=== PATIENT | female | born 2000 | race Caucasian/White ===

== ENCOUNTER 2023-12-29 10:52 | Outpatient (CLI) | payer OTHER, BC, SELFPAY ==
--- NOTE | ~2023-12-29 | US_ITS ---
. EXAMINATION: US OB transvaginal DATE: 12/29/2023 11:43 INDICATION: . Uncertain dates. TECHNIQUE: Real-time transvaginal pelvic ultrasound was performed. COMPARISON: None. FINDINGS: The uterus measures 9.7 x 5.2 x 5.5 cm. There is an intrauterine gestational sac. A yolk sac is ident ified. The crown rump length measures 7 mm, which correlates with an estimated gestational age of 6 weeks and 4 day(s) (+/-) 4 day(s). heart motion is identified measuring 121 beats per min [place] (bpm) by M-mode Doppler. There is a small subchorionic hematoma. The right ovary measures 3.8 x 2 .2 x 2.6 cm. The left ovary measures 3.4 x 1.6 x 2.9 cm. There is no free fluid in the pelvis. IMPRESSION: 1. Single living intrauterine gestation with estimated date of delivery of 08/19/2024. 2. Small subchorionic hematoma. Reviewed, dictated and finalized at location A. IMPRESSION: 1. Single living intrauterine gestation with estimated date of delivery of . 2. Small subchorionic hematoma.
== END 2023-12-29 10:53 ==
LOC: MICIMG 10:54
PROVIDERS: PCP Advanced Practice Midwife; Visit Provider Advanced Practice Midwife
DX: Z36.87 Encounter for antenatal screening for uncertain dates (principal); O41.8X91 Other specified disorders of amniotic fluid and membranes, unspecified trimester, fetus 1; Z3A.00 Weeks of gestation of pregnancy not specified
CPT/HCPCS: 76817

== ENCOUNTER 2024-01-27 12:24 | Outpatient (CLI) | payer OTHER, BC, SELFPAY ==
--- NOTE | ~2024-01-27 | US_ITS ---
EXAMINATION: US OB <= 14 weeks fetus DATE: 01/27/2024 12:46 INDICATION: Subchorionic hematoma, first trimester. TECHNIQUE: Real-time transabdominal pelvic ultrasound was performed. COMPARISON: Ultrasound 12/29/2023 FINDINGS: The uterus measures 9.4 x 8.1 x 7.7 cm. There is an intrauterine gestational sac. The crown rum p length measures 3.9 cm, which correlates with an estimated gestational age of 10 weeks and 6 day(s) (+/-) 1 week(s) and 0 day(s). heart motion is identified measuring 166 beats per minute (bpm) by M-mode Doppler. The ovaries are not visualized. There is no free fluid in the pelvis. IMPRESSION: 1. Single living intrauterine gestation with estimated date of delivery of 08/19/2024 based on the u ltrasound from 12/29/2023. 2. No subchorionic hematoma. Reviewed, dictated and finalized at location A. IMPRESSION: 1. Single living intrauterine gestation with estimated date of delivery of based on the ultrasound from 12/29/2023. 2. No subchorionic hematoma.
== END 2024-01-27 12:25 ==
LOC: MICIMG 12:26
PROVIDERS: PCP Obstetrics & Gynecology Gynecology; Visit Provider Obstetrics & Gynecology Gynecology
DX: O36.8910 Maternal care for other specified fetal problems, first trimester, not applicable or unspecified (principal); Z3A.00 Weeks of gestation of pregnancy not specified
CPT/HCPCS: 76801

== ENCOUNTER 2024-03-21 11:07 | Outpatient (CLI) | payer OTHER, SELFPAY ==
--- NOTE | ~2024-03-21 | US_ITS ---
COMPLETE AND LIMITED MATERNAL ULTRASOUND (Doppler ultrasound interrogation techniques used as n eeded for this exam.) Ordering provider: Donna Quezada, SR. UNIX SYSTEM ADMINISTRATOR History: . Anatomy scan . Comparison: None. Findings: : Single live fetus with breech presentation. Single intrauterine fetus with heart rate measured at 144 bpm which is within normal limits. --SCREENING OF ANATOMY: Heart (4 chambers): Seen and unremarkable. Outflow tracts are not well demonstrated. Brain survey: Unremarkable. Abdomen: Unremarkable. Cord insertion: Unremarkable. 3 vessel cord: Present and unremarkable. Bladder: Unremarkable. Kidneys: Unremarkable. Spine: Unremarkable. Gender: -- BIOMETRICS: BPD: 420.3 mm = 18 weeks 2 days. HC: 153.7 mm = 18 weeks 2 days. FL: 25.9 mm = 17 weeks and 6 days. AC: 131.2 mm = 18 weeks 4 days. HC/AC: 1.17 FL/BPD: 64.3 FL/AC: 19.75 Mean US age is 18 weeks 2 days for an NAIMA on August 20, 2024. Extrapolated weight is 232.47 g. EFW/GP 36.3%. Three vessel cord is seen. Amniotic fluid volume is subjectively within normal limits. No evidence for significant placental anomalies including placenta previa. The placenta is posterior. Distance from cervix is 3.3 cm. The cervical length is 4.5 cm which is within normal limits. IMPRESSION: UNREMARKABLE COMPLETE AND LIMITED MATERNAL US. Cardiac outflows tracts are not well demonstrate d. Reviewed, dictated and finalized at location A. IMPRESSION: UNREMARKABLE COMPLETE AND LIMITED MATERNAL US. Cardiac outflows tracts ar e not well demonstrated.
== END 2024-03-21 11:08 ==
LOC: MICIMG 11:08
PROVIDERS: PCP Nurse Practitioner Women's Health; Visit Provider Nurse Practitioner Women's Health
DX: Z36.9 Encounter for antenatal screening, unspecified (principal)
CPT/HCPCS: 76805

== ENCOUNTER 2024-05-30 12:10 | Outpatient (RCR) | payer OTHER, SELFPAY ==
[2024-05-30 13:37] LABS: Hematocrit 36.1 % (37.0-47.0); Hemoglobin 12.4 g/dL (12.0-15.0)
[2024-05-30 14:02] LABS: Glucose 1 Hour PP 50gm Dose 185 mg/dL
[2024-05-30 14:16] LABS: Vitamin D 25 Hydroxy 63.2 ng/mL
[2024-05-30 14:38] LABS: HIV 1/2 Ab P24 Ag Result Negative (Negative)
[2024-05-30 18:52] LABS: Rapid Plasma Reagin Non-Reactive (NonReactive)
[2024-05-31] MEDS: RHO(D) IMMUNE GLOBULIN 300 MCG/2 ML SYRINGE IM (10:41)
== END 2024-08-28 23:59 | disposition home or self-care (01) ==
LOC: ANHLAB 12:10
PROVIDERS: Visit Provider Advanced Practice Midwife
DX: Z11.4 Encounter for screening for human immunodeficiency virus [HIV] (principal); Z11.3 Encounter for screening for infections with a predominantly sexual mode of transmission; Z29.13 Encounter for prophylactic Rho(D) immune globulin; O36.0130 Maternal care for anti-D [Rh] antibodies, third trimester, not applicable or unspecified; E55.9 Vitamin D deficiency, unspecified; Z3A.00 Weeks of gestation of pregnancy not specified
CPT/HCPCS: 36415; 82306; 82947; 85014; 85018; 85461; 86592; 86703; 86850; 86900; 86901; 90384; 96372; G0432; J2790

== ENCOUNTER 2024-06-06 08:30 | Outpatient (CLI) | payer OTHER, SELFPAY ==
[2024-06-06 09:03] LABS: Glucose Fasting Gestational 113 mg/dL (>/=95)
[2024-06-06 11:02] LABS: Glucose 1 Hour Gest 201 mg/dL (>/=180)
[2024-06-06 12:08] LABS: Glucose 2 Hour Gest 180 mg/dL (>/= 155)
[2024-06-06 12:46] LABS: Glucose 3 Hour Gest 170 mg/dL (>/=140)
== END 2024-06-06 08:31 | disposition home or self-care (01) ==
LOC: ANHLAB 08:32
PROVIDERS: Visit Provider Obstetrics & Gynecology Gynecology
DX: O99.810 Abnormal glucose complicating pregnancy (principal); Z3A.00 Weeks of gestation of pregnancy not specified
CPT/HCPCS: 36415; 82951; 82952

== ENCOUNTER 2024-06-14 10:46 | Outpatient (CLI) | payer OTHER, SELFPAY ==
--- NOTE | ~2024-06-14 | US_ITS ---
EXAMINATION: US OB follow up DATE: 06/14/2024 11:39 INDICATION: Gestational diabetes mellitus during TECHNIQUE: Real-time ultrasound of the pelvis was performed. The interpreting radiologist was not pre sent for the study. COMPARISON: None. FINDINGS: There is a single living fetus in vertex presentation. The placenta is posterior and not low-lying. heart rate is 136 beats per minute (bpm). The amniotic fluid index is 17.7 cm, which is normal (5th%-95%: 9.0-23.4 cm at 30 weeks estimated gestational age). The following biometric data were obtained: BPD: 8.1 cm -> 32 weeks 5 days Head circumference: 28.9 cm -> 31 weeks 6 days Abdominal circumference: 26.2 cm -> 30 weeks 2 days Femur length: 6.1 cm -> 31 weeks 5 days These measurements are concordant. Head circumference to abdominal circumference ratio: 1.11 (normal range 0.96-1.15). Estimated weight: 1699 g (+/-) 255 g or 3 lbs. 12 oz. (+/-) 9 oz. IMPRESSION: 1. Single living fetus in vertex presentation with heart rate of 136 bpm. 2. Normal amniotic fluid index of 17.7 cm. 3. Estimated weight is 56th percentile by Hadlock criteria when 08/19/2024 is used as the estim ated date of delivery (NAIMA). Please correlate with clinical information or earlier ultrasounds for mo st accurate NAIMA. Reviewed, dictated and finalized at location A. IMPRESSION: 1. Single living fetus in vertex presentation with heart rate of 136 bpm. 2. Normal amniotic fluid index of 17.7 cm. 3. Estimated weight is 56th percentile by Hadlock criteria when 4 is used as the estimated date of delivery (NAIMA). Please correlate with clinic al information or earlier ultrasounds for most accurate NAIMA.
== END 2024-06-14 10:47 | disposition home or self-care (01) ==
PROVIDERS: PCP Advanced Practice Midwife; Visit Provider Advanced Practice Midwife
DX: O24.410 Gestational diabetes mellitus in pregnancy, diet controlled (principal); Z3A.00 Weeks of gestation of pregnancy not specified
CPT/HCPCS: 76816

== ENCOUNTER 2024-07-12 10:28 | Outpatient (CLI) | payer OTHER, BC, SELFPAY ==
[2024-07-12 11:27] LABS: Alanine Aminotransferase 52 U/L (6-35); Albumin Level 3.8 g/dL (3.5-5.1); Alkaline Phosphatase 118 U/L (38-126); Anion Gap 11 mmol/L (4-12); Aspartate Amino Transferase 31 U/L (14-36); Bilirubin,Total 0.4 mg/dL (0.2-1.3); Blood Urea Nitrogen 9 mg/dL (7-17); Carbon Dioxide 18 mmol/L (22-30); Chloride 104 mmol/L (98-107); Estimated Glomerular Filt Rate > 60; Glucose 95 mg/dL (65-110); Potassium 3.7 mmol/L (3.4-5.0); Sodium 133 mmol/L (137-145)
== END 2024-07-12 10:29 | disposition home or self-care (01) ==
LOC: ANHLAB 10:32
PROVIDERS: PCP Advanced Practice Midwife; Visit Provider Advanced Practice Midwife
DX: O99.891 Other specified diseases and conditions complicating pregnancy (principal); L29.9 Pruritus, unspecified; Z3A.00 Weeks of gestation of pregnancy not specified
CPT/HCPCS: 36415; 80053; 82542

== ENCOUNTER 2024-07-20 10:36 | Outpatient (CLI) | payer OTHER, BC, SELFPAY ==
--- NOTE | ~2024-07-20 | US_ITS ---
EXAMINATION: US OB follow up DATE: 07/20/2024 10:57 INDICATION: Gestational diabetes during third trimester . TECHNIQUE: Real-time ultrasound of the pelvis was performed. The interpreting radiologist was not pre sent for the study. COMPARISON: 06/14/2024 FINDINGS: There is a single living fetus in vertex presentation. The placenta is posterior fundal and not low- lying. heart rate is 139 beats per minute (bpm). The amniotic fluid index is 10.0 cm, which is normal (5th%-95%: 7.9-24.9 cm at 35 weeks estimated gestational age). The following biometric data were obtained: BPD: 8.9 cm -> 36 weeks 1 days Head circumference: 32.2 cm -> 36 weeks 2 days Abdominal circumference: 31.9 cm -> 35 weeks 6 days Femur length: 6.8 cm -> 35 weeks 0 days These measurements are concordant. Head circumference to abdominal circumference ratio: 1.01 (normal range 0.93-1.08). Estimated weight: 2750 g (+/-) 413 g or 6 lbs. 1 oz. (+/-) 15 oz. IMPRESSION: 1. Single living fetus in vertex presentation with heart rate of 139 bpm. 2. Normal amniotic fluid index of 10.0 cm. 3. Estimated weight is 50th percentile by Hadlock criteria when 08/19/2024 is used as the estim ated date of delivery (NAIMA). Please correlate with clinical information or earlier ultrasounds for mo st accurate NAIMA. Reviewed, dictated and finalized at location A. IMPRESSION: 1. Single living fetus in vertex presentation with heart rate of 139 bpm. 2. Normal amniotic fluid index of 10.0 cm. 3. Estimated weight is 50th percentile by Hadlock criteria when 4 is used as the estimated date of delivery (NAIMA). Please correlate with clinic al information or earlier ultrasounds for most accurate NAIMA.
== END 2024-07-20 10:37 | disposition home or self-care (01) ==
LOC: MICIMG 10:37
PROVIDERS: PCP Advanced Practice Midwife; Visit Provider Advanced Practice Midwife
DX: O24.414 Gestational diabetes mellitus in pregnancy, insulin controlled (principal); Z3A.00 Weeks of gestation of pregnancy not specified
CPT/HCPCS: 76816

== ENCOUNTER 2024-07-28 10:50 | Outpatient (RCR) | payer OTHER, SELFPAY ==
[2024-07-21 15:08] VITALS: BP 99/64; PULSE 82
--- NOTE | ~2024-07-28 | US_ITS ---
EXAMINATION: US OB BPP wo non-stress DATE: 07/21/2024 15:03 INDICATION: Gestational diabetes and nonreactive nonstress test during third trimester . TECHNIQUE: Real-time pelvic ultrasound was performed. The interpreting radiologist was not present fo r the study. COMPARISON: None. FINDINGS: There is a single living fetus in vertex presentation. The placenta is posterior fundal. heart rate is 126 beats per minute (bpm). Amniotic fluid volume is subjectively normal with normal deepest vertical pocket measuring 5.9 cm. Biophysical profile performed by the technologist: breathing (30 sec sustained breathing in 30 minutes): 2 out of 2 movement (3 gross body movements in 30 minutes): 2 out of 2 tone (one episode of heewxnu-szcnqzpyo-dgwtqqn limb movement): 2 out of 2 Amniotic fluid pocket (2 cm): 2 out of 2 Total score: 8 out of 8 IMPRESSION: 1. Single living fetus in vertex presentation with heart rate of 126 bpm. 2. Biophysical profile 8 out of 8. Reviewed, dictated and finalized at location A.
--- NOTE | ~2024-07-28 | US_ITS ---
EXAMINATION: US OB BPP wo non-stress DATE: 07/28/2024 13:55 INDICATION: arrhythmia TECHNIQUE: Real-time pelvic ultrasound was performed. The interpreting radiologist was not present fo r the study. COMPARISON: None. FINDINGS: There is a single living fetus in vertex presentation. The placenta is fundal/posterior. cardi ac activity and movement are demonstrated. heart rate is 148 beats per minute (bpm). Biophysical profile performed by the technologist: breathing (30 sec sustained breathing in 30 minutes): 2 out of 2 movement (3 gross body movements in 30 minutes): 2 out of 2 tone (one episode of gagqebj-ehukcmgtd-pjnoiiv limb movement): 2 out of 2 Amniotic fluid pocket (2 cm): 2 out of 2 Total score: 8 out of 8 IMPRESSION: 1. Single living intrauterine in vertex presentation with heart rate of 148 bpm. 2. Normal placenta. 3. Biophysical profile 8 out of 8. Reviewed, dictated and finalized at location B. E I INSTRUCTIONAL ASSISTANT
[2024-07-28 14:00] VITALS: BP 114/71; PULSE 80
== END 2024-08-16 17:44 | disposition home or self-care (01) ==
LOC: ANHOBOP 10:50
PROVIDERS: PCP Advanced Practice Midwife; Visit Provider Obstetrics & Gynecology Gynecology
DX: O26.893 Other specified pregnancy related conditions, third trimester (principal); Z3A.35 35 weeks gestation of pregnancy
CPT/HCPCS: 59025; 76819

== ENCOUNTER 2024-08-02 20:28 | Outpatient (CLI) | payer OTHER, SELFPAY ==
[2024-08-02 21:21] VITALS: BP 128/76; PULSE 84
== END 2024-08-02 20:29 | disposition home or self-care (01) ==
LOC: ANHOBOP 21:20
PROVIDERS: Visit Provider Advanced Practice Midwife
DX: O42.90 Premature rupture of membranes, unspecified as to length of time between rupture and onset of labor, unspecified weeks of gestation (principal); Z3A.00 Weeks of gestation of pregnancy not specified
CPT/HCPCS: 59025

== ENCOUNTER 2024-08-13 19:03 | Inpatient (IN) | payer OTHER, SELFPAY ==
[2024-08-13] VITALS (10 sets, daily range): BP systolic 110–137; BP diastolic 61–74; PULSE 68–98; TEMP 36.1–36.5; BMI 38.0
[2024-08-13] MEDS: miSOPROStol 25 MCG TABLET BUCCAL (19:43)
--- NOTE | 2024-08-13 19:44 | LDADM ---
This patient, Reina Bates, was admitted to Labor/Delivery/Recovery 104 on 08/13/24 at 19:03. Plans for labor, pain management and were discussed with patient. Patient/family oriented to hospital policies and general routines including ID bracelet, bed and alarms, visiting hours, pain management, procedures, bathroom and other care routines, personal items, smoking policy, room service/diet and guest tray routines, infant security routines, and visiting hours. Patient/Family are encouraged to report perceived risks to care and to ask questions if they do not understand what they are told or what they should do. See OBIX for further documentation.
[2024-08-13 19:48] LABS: Basophils Percent Auto 0.1 % (0.2-1.2); Eosinophils Absolute Auto 0.1 K/mm3 (0-0.3); Hematocrit 39.6 % (37.0-47.0); Hemoglobin 13.7 g/dL (12.0-15.0); Immature Granulocyte Absolute 0.02 K/mm3 (0.00-0.031); Immature Granulocyte Percent A 0.2 % (0-0.5); Lymphocytes Absolute Auto 1.18 K/mm3 (0.9-3.2); Lymphocytes Percent Auto 14.1 % (18.3-44.2); Mean Corpuscular HGB Conc 34.6 g/dl (32-36); Mean Corpuscular Hemoglobin 31.1 pg (26-34); Mean Platelet Volume 9.3 fl (7.4-10.4); Monocytes Absolute Auto 0.6 K/mm3 (0.1-0.6); Monocytes Percent Auto 7.4 % (2.6-8.5); Neutrophils Absolute Auto 6.4 K/mm3 (1.3-6.7); Neutrophils Percent Auto 77.2 % (45.5-73.1); Platelet Count Result 203 k/mm3 (150-375); Red Cell Distribution Width 13.2 % (11.5-14.5); White Blood Count 8.3 K/mm3 (4.5-10.0)
[2024-08-13 19:58] LABS: Alanine Aminotransferase 41 U/L (6-35); Albumin Level 3.7 g/dL (3.5-5.1); Alkaline Phosphatase 180 U/L (38-126); Anion Gap 8 mmol/L (4-12); Aspartate Amino Transferase 32 U/L (14-36); Bilirubin,Total 0.5 mg/dL (0.2-1.3); Blood Urea Nitrogen 13 mg/dL (7-17); Calcium 9.2 mg/dL (8.4-10.2); Carbon Dioxide 19 mmol/L (22-30); Chloride 108 mmol/L (98-107); Estimated CRCL calculation 96 ml/min; Estimated Glomerular Filt Rate > 60; Glucose 103 mg/dL (65-110); Potassium 3.8 mmol/L (3.4-5.0); Sodium 135 mmol/L (137-145); Uric Acid 5.9 mg/dL (2.5-7.5)
[2024-08-13 20:52] LABS: HIV 1/2 Ab P24 Ag Result Negative (Negative)
[2024-08-13] MEDS: buPROPion HCL XL (24 HR) 150 MG TABCR 300 MG PO (22:00)
[2024-08-13] MEDS: INSULIN HUMAN NPH (*BKC) 100 UNITS/ML 20 UNITS SUB-Q (22:00)
[2024-08-13 22:13] LABS: Rapid Plasma Reagin Non-Reactive (NonReactive)
[2024-08-13] MEDS: diphenhydrAMINE HCl CAP 25 MG CAPSULE PO (22:24)
[2024-08-13] MEDS: miSOPROStol 25 MCG TABLET 50 MCG BUCCAL (23:39)
[2024-08-14] VITALS (77 sets, daily range): BP systolic 79–150; BP diastolic 44–97; PULSE 55–89; TEMP 36.1–36.3; O2SAT 97–100
[2024-08-14] MEDS: miSOPROStol 25 MCG TABLET 50 MCG BUCCAL (03:35)
[2024-08-14 06:00] LABS: Glucose Point of Care 95 mg/dl (65-105)
--- NOTE | 2024-08-14 07:50 | WPDOBADMIT ---
Obstetrics - Admit Note Admission Note: record reviewed. No pertinent additions to the history and/or any subsequent changes in the physical findings that are not consistent with the expected course of the were found. Additions to the history and/or subsequent changes in the physical findings follow. None.
--- NOTE | 2024-08-14 07:50 | PM.OBPNLAB ---
Pain Control Date/time seen: 08/14/24 07:35 Pain control: tolerating well Comments: Feeling very occasional mild contractions Pelvic Exam Dilation (cm): 1 (1.5) Effacement (%): 50 station: -3 Amniotic membrane status: Intact Comments: hed very well applied to cervix. Contractions Monitor mode: External Contraction frequency: 2 (2-5) Contraction duration: 50 (50-60) Contraction pattern: Regular Contraction intensity: Mild Status Comments: Baseline 130. Moderate variability. +accelerations. Assessment and Plan Assessment: induction ongoing Comments: CNM to bedside. Discussed plan of care and option for amniotomy. Discussed risks, benefits, and expectations of breaking water. Patient is agreeable. Amniotomy performed and there was a small return of clear amniotic fluid. Patient tolerated procedure well. Due to frequency of ctx pattern and amniotomy, will defer pitocin at this time. Discussed possibility of IUPC placement in future and pt is agreeable if needed. Anticipate vaginal . Dr. North updated.
[2024-08-14 10:38] LABS: Glucose Point of Care 141 mg/dl (65-105)
[2024-08-14] MEDS: INSULIN HUMAN REGULAR (*BKC) 100 UNITS/ML SUB-Q (11:12)
[2024-08-14] MEDS: OXYTOCIN 30 UNITS/NS 500 ML 30 UNITS/500 ML BAG IV CONT (11:15)
[2024-08-14] MEDS: LACTATED RINGERS 1,000 ML 125 ML IV CONT ×3 (11:15→21:34)
[2024-08-14 12:25] LABS: Glucose Point of Care 118 mg/dl (65-105)
[2024-08-14 16:28] LABS: Glucose Point of Care 96 mg/dl (65-105)
--- NOTE | 2024-08-14 18:08 | PM.OBPNLAB ---
Pain Control Date/time seen: 08/14/24 5667 Pain control: tolerating well Comments: Fence Manufacture Supervisor and partner present and supportive. Pelvic Exam Dilation (cm): 2 (2.5) Effacement (%): 80 station: -2 Amniotic membrane status: Ruptured Comments: head well applied to cervix. Contractions Monitor mode: External Contraction frequency: 2 (2-4) Contraction duration: 60 (60-80) Contraction pattern: Regular Contraction intensity: Moderate Status Comments: FHTs 135 baseline with moderate variability. +accelerations Assessment and Plan Pitocin rate (mU/min): 4 Assessment: induction ongoing Comments: Discussed plan of care and IOL process. Discussed option and recommendation for IUPC placement. Pt is agreeable. IUPC placed posteriorly to left and returned with toni blood. This was removed and a new IUPC was placed posteriorly to far right side and also returned with toni blood. This was also removed. A 3rd IUPC was placed anteriorly in the 1 o'clock position. The catheter was advanced to the STOP position per synthetic staple extruder recommendation and clear fluid noted in catheter. Plan to titrate pitocin as needed to achieve adequate contraction pattern. Anticipate vaginal . Dr. North updated.
[2024-08-14 20:21] LABS: Glucose Point of Care 108 mg/dl (65-105)
[2024-08-14] MEDS: ONDANSETRON INJ 4 MG/2 ML VIAL IV PUSH (20:25)
[2024-08-15] VITALS (96 sets, daily range): BP systolic 78–126; BP diastolic 29–84; PULSE 50–115; RESP 16; TEMP 36.1–36.9; O2SAT 77–100
--- NOTE | 2024-08-15 00:03 | PM.OBPNLAB ---
Pain Control Date/time seen: 08/15/24 0004 (CNM on unit) Pain control: tolerating well and epidural Pelvic Exam Comments: No SVE at this time. Contractions Monitor mode: Internal Contraction frequency: 3 (2-3.5) Contraction duration: 70 (70-90) Contraction pattern: Regular Status Comments: FHT baseline 125 with moderate variability, +accelerations. Assessment and Plan Assessment: induction ongoing Plan: continuous present management Comments: Pt resting. Tracing reviewed.
[2024-08-15] MEDS: buPROPion HCL XL (24 HR) 150 MG TABCR 300 MG PO ×2 (00:08→21:01)
[2024-08-15 00:36] LABS: Glucose Point of Care 95 mg/dl (65-105)
[2024-08-15] MEDS: ONDANSETRON INJ 4 MG/2 ML VIAL IV PUSH (04:18)
[2024-08-15] MEDS: AMPICILLIN 2 GM/NS 100 ML 2 GM/100 ML BAG IVPB (04:35)
--- NOTE | 2024-08-15 04:56 | PM.OBPNLAB ---
Pain Control Date/time seen: 08/15/24 0300 Pain control: tolerating well and epidural Pelvic Exam Dilation (cm): 7 (2.5) Effacement (%): 90 station: 0 Amniotic membrane status: Ruptured Contractions Monitor mode: Internal Contraction frequency: 3 (1.5-5) Contraction duration: 70 (70-90) Contraction pattern: Regular Status Comments: Baseline 125 with moderate variability. Early, variable, and one prolonged deceleration present. Assessment and Plan Assessment: induction ongoing Comments: Anticipate vaginal .
--- NOTE | 2024-08-15 04:59 | PM.OBPNLAB ---
Pain Control Date/time seen: 08/15/24 0425 Assessment and Plan Comments: CNM called by RN to come for delivery.
--- NOTE | 2024-08-15 05:01 | PM.OBPNLAB ---
Pain Control Date/time seen: 08/15/24 0452 Assessment and Plan Comments: CNM to bedside. RN pushing with pt during ctx. RN states pt has further pushing to do prior to . CNM requested urinary catheter be removed.
--- NOTE | 2024-08-15 05:02 | PM.OBPRVD ---
OB - Vaginal Delivery Note Procedure Delivery date: 08/15/24 Events: Gestational Diabetes (GDMA2) Induction method: Per Misoprostol Protocol Delivery augmentation: Rupture of Membranes Delivery monitor: External FHT and Internal Uterine Route of delivery: Episiotomy description: None Laceration Description: Perineal - 2nd Degree and Labial (right labial/oneida urethral) Delivery repair: vicryl Specimen: Yes (placenta) Quantitative Blood Loss (ml): 925 Anesthesia type: Epidural Disposition: Floor Complications: No immediate complications Narrative: Reina arrived for IOL 2/2 GDMA2. She received 3 doses of cytotec followed by amniotomy and then pitocin. She requsted and recieved an epidural for analgesia. She progressed to complete dilation and pushed well with contractions. She brought the head to a complete crown and then quickly delivered the entire head followed by the shoulders and remainder of the . The was placed on the maternal abdomen and care transferred to the nursery staff. After one minute of life, the cord was doubly clamped and cut. Cord gasses, cord blood, and a cord segment was obtained. The placenta delivered spontaneously in the [place] presentation. There was brisk bleeding from 2 laceration sites. Attention was placed to the most prominent first. A beatty catheter was placed to assist in the repair. Both lacerations were repaired in the usual fashion and there was excellent hemostasis from these sites. The uterus was slightly boggy but firmed with massage and 800mcg cytotec was given rectally. Additional IV fluids given for repletion. Mother and baby skin to skin in the delivery room. All delivery counts correct. Baby Date of : 08/15/24 Time of : 05:26 Gestational Age by Date: 39 gender: Female Weight (pounds): 0 (weight not available at the time of note) presentation: vertex position: Right Occiput Anterior Placenta delivery description: Spontaneous Cord Vessel Description: 3 Vessels and Delayed Cord Clamping score one minute: 8 score five minutes: 9
--- NOTE | 2024-08-15 05:04 | P.DS_ITS ---
DS: Admitting Diagnosis Discharge Date 08/16/24 Admitting Diagnosis 24 y.o. at 39 weeks IOL 2/2 GDMA2 DS: Discharge Diagnosis Discharge Diagnosis (1) (normal spontaneous vaginal delivery): Code(s): O80 - Encounter for full-term uncomplicated delivery Status: Acute (2) Patient is a currently breast-feeding mother: Code(s): Z39.1 - Encounter for care and examination of lactating mother Status: Acute (3) Gestational diabetes: Code(s): O24.419 - Gestational diabetes mellitus in , unspecified control Status: Acute OB - DS: Summary Hospital Course Hospital Course: Unomplicated OB Procedures : NST and Ultrasound OB Procedures Intrapartum: Spontaneous Vag Delivery OB Procedures: : None Peripartum Data Delivery Method: Natural Vaginal Laceration Description: Perineal - 2nd Degree and Labial Episiotomy description: None complications: none Status at Discharge Functional status at discharge: independent ambulation Overall status at discharge: patient is progressing back to baseline Time Spent with Patient Time attestation: Total time spent providing and/or coordinating discharge services: Exam Narrative: Alert and oriented. Mood is pleasant and cooperative. Perineum with minimal edema. Fundus firm and below umbilicus. Const: General: cooperative, healthy appearing, no acute distress and alert Orientation/consciousness: patient oriented x3 Limitations: no limitations Resp: Effort & Inspection: normal respiratory effort and able to speak in complete sentences Cardio: Rate: regular rate GI: Inspection: normal to inspection GI Palp: Yes Soft to palpation : General: Yes bladder normal to palpation External Female Exam: other (lochia WNL) Bimanual exam- vagina & uterus: bladder normal to palpation Other: Fundus firm and below U Skin: General skin exam: normal color and no rashes or lesions noted Neuro: General: patient oriented x3 and moves all extremities Cognition (Neuro): normal cognition Speech: normal speech Sensory Exam: normal se nsation Extrem: General: normal to inspection and no calf tenderness Psych: Appearance: grossly normal Mental Status: mental status grossly normal Affect: normal affect Thought process: Normal thought process pr esent DS: Data Data Completed and Pending Labs on day of discharge: Labs from last 24 hours 08/15/24 08/14/24 08/14/24 00:32 20:14 16:25 POC Capillary Glucose 95 108 H 96 08/14/24 08/14/24 08/14/24 12:21 10:32 05:56 POC Capillary Glucose 118 H 141 H 95 Discharge Plan Discharge Attending physician on discharge: Yanni North Discharging Clinician: Aylin Ron Anticipated Discharge Date/Time: 08/17/24 10:00 Patient Disposition: Home, Self-Care Activity: may shower and pelvic rest Diet: as tolerated Discharge Instructions: Continue taking your vitamin and any other supplements as previously directed (Examples: Iron, Vitamin D). You may take Tylenol 1000mg over the counter every 6 hours as needed for pain. Do not exceed 4000mg of Tylenol daily. You may continue using tucks pads and dermoplast spray if needed for a few more days. Depression * Notify provider for signs or symptoms. These may include- * Feelings: Feeling anxious, angry, hopeless, guilt, or loss of interest/pleasure in activities you normally enjoy. Mood swings or panic attacks. * General: Extreme fatigue, loss of your appetite, feeling restless. Crying excessively, irritability, insomnia * Psychological: Lack of concentration, depression or fear, unwanted thoughts * Weight: Significant gain or loss * Safety: Thoughts of harming yourself or your baby. Patient Instructions: Antibiotic Form Stand Alone Forms: General Discharge Information Follow-up/Referrals: Aylin Ron CNM [Certified Nurse Sock Lining Stitcher] - (6 weeks ) Discharge Medications: New docusate sodium 100 mg Capsule 100 mg PO BID PRN (Reason: Constipation) Qty: 60 0RF ibuprofen 600 mg Tablet 600 mg PO Q6H PRN (Reason: Cramping) 14 Days Qty: 30 0RF Continued Classic 28 mg iron- 800 mcg Tablet 1 tablet PO DAILY ergocalciferol (vitamin D2) [Vitamin D2] 1,250 mcg (50,000 unit) Capsule 1,250 mcg PO WEEKLY bupropion HCl [Wellbutrin XL] 300 mg Tablet Extended Release 24 Hr 300 mg PO HS Discontinued Humulin N NPH U-100 Insulin 100 unit/mL Cartridge 40 unit SUBCUT HS Date of admission: 08/13/24 19:03 Primary Care Provider: PHYSICIAN NOT ON STAFF,NONSTAFF Admitting Provider: Yanni North Attending physician on admission: Yanni North Condition: Stable
[2024-08-15] MEDS: OXYTOCIN 30 UNITS/NS 500 ML 30 UNITS/500 ML BAG 125 UNITS IV CONT (05:54)
[2024-08-15] MEDS: miSOPROStol 200 MCG TABLET 800 MCG RECTAL (06:10)
[2024-08-15] MEDS: LACTATED RINGERS 1,000 ML 500 ML IV CONT (06:16)
[2024-08-15 06:29] LABS: Glucose Point of Care 86 mg/dl (65-105)
[2024-08-15] MEDS: ACETAMINOPHEN 325 MG TABLET 650 MG PO ×3 (09:09→21:00)
[2024-08-15] MEDS: MULTIVIT/MIN/PREN/FOL AC/IRON TABLET 1 TAB PO (09:10)
[2024-08-15] MEDS: IBUPROFEN 600 MG TABLET PO ×3 (09:10→21:01)
--- NOTE | 2024-08-15 09:16 | OBPPTRN ---
Patient transferred to post room # 286 via wheelchair. Support person present. Oriented to unit, room, information board, rooming in, admission packet and security measures. Patient verbalizes understanding.
--- NOTE | 2024-08-15 10:25 | PC.NURSE ---
1025- Introductions were made, then consulted with patient to assess needs related to . Discussed with mother her?plans to feed?her and the?experience so far. Baby just breastfed for 30 minutes. Mom says her nipples are a little sore. We discussed spit up, burping and offering both breasts at each feeding but that baby may only eat from one breast at a time. Patient seems receptive to education and will call for assistance. Admission folder given. Resources provided for inpatient and outpatient services with the feeding sheet, mom/baby guide and name/number written on the communication board. Mother voiced understanding of information and will call if there is a request for assistance. Reported to the Primary RN.
[2024-08-15] MEDS: WITCH HAZEL 40 PADS 1 PAD TOPICAL (11:56)
[2024-08-15] MEDS: BENZOCAINE 20% AER SPR (*SP) 56 GM CAN 1 SPRAY TOPICAL (11:56)
--- NOTE | 2024-08-15 12:15 | PC.NURSE ---
Patient called out for assistance. Baby's glucose was good and mom has baby skin to skin. We moved baby into a cross cradle position. Mom is comfortable with handling baby and holding her breast. Baby did make a few attempts to latch and held the nipple in her mouth. She refused to suck. We tried for several minutes and when baby didn't give any further effort, encouraged parents to take a break and try again in a half hour. Educated mom about the 'birthday nap' and that many newborns are sleepy during the first 24 hours of life. Mom has the early feeding cues handout to refer to when observing baby for feeding readiness. Mom agrees to try again soon and will call out as needed for assistance. Reported to primary RN.
[2024-08-15] MEDS: DOCUSATE SODIUM 100 MG CAPSULE PO (16:53)
[2024-08-16 01:15] VITALS: BP 106/62; PULSE 73; RESP 16; TEMP 36.5; O2SAT 99
[2024-08-16] MEDS: ACETAMINOPHEN 325 MG TABLET 650 MG PO ×2 (03:11→09:30)
[2024-08-16] MEDS: IBUPROFEN 600 MG TABLET PO ×2 (03:12→09:29)
[2024-08-16 05:58] LABS: Hematocrit 34.6 % (37.0-47.0); Hemoglobin 11.5 g/dL (12.0-15.0)
--- NOTE | 2024-08-16 07:44 | PM.OBPNVD ---
OB - PN: Subj Subjective Date/time seen: 08/16/24 07:25 Interval history: Post Day 1 from . Doing well. Urinating without difficulty. Denies passing any large clots. Denies dizziness with ambulating. Tolerating po food and fluids. Bonding with . Nursing very well. Desires DC home today. Patient comments: pain well controlled baby status: doing well and nursing well feeding status: exclusively breast feeding OB - PN: Obj Data Labs 08/16/24 04:38 08/13/24 19:31 Labs: Laboratory Results - last 24 hr 08/16/24 04:38 Hgb 11.5 L Hct 34.6 L OB - PN A/P Assessment and Plan (1) (normal spontaneous vaginal delivery): Code(s): O80 - Encounter for full-term uncomplicated delivery Status: Acute (2) Patient is a currently breast-feeding mother: Code(s): Z39.1 - Encounter for care and examination of lactating mother Status: Acute (3) Rh negative status during : Code(s): O26.899 - Other specified related conditions, unspecified trimester; Z67.91 - Unspecified blood type, Rh negative Status: Acute Assessment and Plan: Baby Rh negative Plan day: 1 Plan: discharge home Time Spent With Patient Time: Total time spent is greater than 50% in coordination of care (as documented) at patient's floor/unit and/or counseling patient: Review of Systems Review of Systems: All systems reviewed & are unremarkable except as noted in HPI and below Exam Narrative: Alert and oriented. Mood is pleasant and cooperative. Perineum with minimal edema. Fundus firm and below umbilicus. Const: General: cooperative, healthy appearing, no acute distress and alert Orientation/consciousness: patient oriented x3 Limitations: no limitations Resp: Effort & Inspection: normal respiratory effort and able to speak in complete sentences Cardio: Rate: regular rate GI: Inspection: normal to inspection GI Palp: Yes Soft to palpation : General: Yes bladder normal to palpation External Female Exam: other (lochia WNL) Bimanual exam- vagina & uterus: bladder normal to palpation Other: Fundus firm and below U Skin: General skin exam: normal color and no rashes or lesions noted Neuro: General: patient oriented x3 and moves all extremities Cognition (Neuro): normal cognition Speech: normal speech Sensory Exam: normal sensation Extrem: General: normal to inspection and no calf tenderness Psych: Appearance: grossly normal Mental Status: mental status grossly normal Affect: normal affect Thought process: Normal thought process present
--- NOTE | 2024-08-16 07:56 | WPDANLDPN2 ---
Anes-Prog Note L&D Date/Time: 08/16/24 07:56 Comfortable throughout: labor and delivery Neuraxial method: epidural Epidural/Spinal procedure site: clean & non-tender Neuro status: Neuro function grossly intact. Cardiovascular status: normal Respiratory status: normal Airway patency: baseline Mental status: baseline Post-Op hydration status: normal Vital Signs: Last Vital Signs Temp 36.5 C 08/16/24 01:15 Pulse 73 08/16/24 01:15 Resp 16 08/16/24 01:15 BP 106/62 08/16/24 01:15 Pulse Ox 99 08/16/24 01:15 O2 Del Method Room Air 08/13/24 19:44 Pain score (VAS): 3/10 I/O: Intake & Output 08/15/24 08/15/24 08/16/24 15:59 23:59 07:59 Intake Total 1000 100 Output Total 100 Balance 900 100 Post-procedural complaints: none Patient feedback: Patient satisfied with anesthetic care.
[2024-08-16 08:20] VITALS: BP 113/69; PULSE 72; RESP 16; TEMP 36.2; O2SAT 99
[2024-08-16] MEDS: DOCUSATE SODIUM 100 MG CAPSULE PO (09:30)
--- NOTE | 2024-08-16 11:03 | PC.NURSE ---
Patient viewed the discharge video Mother & Baby Care, The First Two Weeks . Patient was given the opportunity and encouraged to ask questions. Patient verbalized understanding of information shared and has been given the mother/baby guide for home reference.
[2024-08-18 08:33] VITALS: BP 137/76; PULSE 86; RESP 18; TEMP 36.9; O2SAT 98
== END 2024-08-16 12:35 | disposition home or self-care (01) | DRG 807 ==
LOC: ANHLDR 08-15 05:07 → ANHOB2 08-15 10:03
PROVIDERS: Advanced Practice Midwife; Admitting Provider Obstetrics & Gynecology Gynecology; Visit Provider Obstetrics & Gynecology Gynecology
DX: O42.92 Full-term premature rupture of membranes, unspecified as to length of time between rupture and onset of labor (principal); Z37.0 Single live birth; O76 Abnormality in fetal heart rate and rhythm complicating labor and delivery; O24.424 Gestational diabetes mellitus in childbirth, insulin controlled; O70.1 Second degree perineal laceration during delivery; O71.82 Other specified trauma to perineum and vulva; Z3A.39 39 weeks gestation of pregnancy
CPT/HCPCS: 36415; 80053; 82948; 84550; 85014; 85018; 85025; 86592; 86703; 86850; 86900; 86901; 88307; A9270; G0432; J0290; J1815; J2405; J2590; J2795; J7120

== ENCOUNTER 2024-08-28 19:57 | Emergency (ER) | payer OTHER, SELFPAY ==
[2024-08-28 20:32] LABS: Basophils Percent Auto 0.2 % (0.2-1.2); Hematocrit 40.7 % (37.0-47.0); Hemoglobin 13.8 g/dL (12.0-15.0); Immature Granulocyte Absolute 0.04 K/mm3 (0.00-0.031); Immature Granulocyte Percent A 0.4 % (0-0.5); Lymphocytes Absolute Auto 0.35 K/mm3 (0.9-3.2); Lymphocytes Percent Auto 3.3 % (18.3-44.2); Mean Corpuscular HGB Conc 33.9 g/dl (32-36); Mean Corpuscular Hemoglobin 30.8 pg (26-34); Mean Corpuscular Volume 90.8 fl (80-100); Mean Platelet Volume 8.4 fl (7.4-10.4); Monocytes Absolute Auto 0.5 K/mm3 (0.1-0.6); Monocytes Percent Auto 5.1 % (2.6-8.5); Neutrophils Absolute Auto 9.6 K/mm3 (1.3-6.7); Platelet Count Result 337 k/mm3 (150-375); Red Blood Count 4.48 M/mm3 (4.2-5.4); Red Cell Distribution Width 12.6 % (11.5-14.5); White Blood Count 10.6 K/mm3 (4.5-10.0)
[2024-08-28 20:38] LABS: Alanine Aminotransferase 26 U/L (6-35); Albumin Level 4.2 g/dL (3.5-5.1); Alkaline Phosphatase 128 U/L (38-126); Anion Gap 8 mmol/L (4-12); Aspartate Amino Transferase 32 U/L (14-36); Bilirubin,Total 0.4 mg/dL (0.2-1.3); Blood Urea Nitrogen 14 mg/dL (7-17); Calcium 8.8 mg/dL (8.4-10.2); Carbon Dioxide 20 mmol/L (22-30); Chloride 105 mmol/L (98-107); Estimated CRCL calculation 111 ml/min; Estimated Glomerular Filt Rate > 60; Glucose 136 mg/dL (65-110); Potassium 3.8 mmol/L (3.4-5.0); Sodium 133 mmol/L (137-145)
[2024-08-29 01:47] VITALS: BP 133/67; PULSE 100; RESP 16; TEMP 37.7; O2SAT 100
--- NOTE | 2024-08-29 02:17 | ED_ITS ---
HPI - General Adult General Chief complaint: Unspecified Stated complaint: possible mastitis Time Seen by Provider: 08/29/24 01:44 Source: patient Mode of arrival: ambulatory Limitations: no limitations History of Present Illness HPI narrative: Patient is a 24-year-old female who presents the ED with report of breast pain. Patient reports she is 13 days . . reports over the last couple of days, she has been having chills, night sweats, bilateral breast pain- worse on the left breast. Reports today she developed a fever up to 102? F. she is currently and pumping. She reports she has been over similar. She reports diffuse myalgias. Denies abd pain, N/V. States vaginal bleeding is slowing. 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 North's office. Related Data Home Medications ?Medication ?Instructions ?Recorded ?Confirmed ?Last Taken ?Type bupropion HCl 300 mg 24 hr tablet, 300 mg PO HS 07/24/24 08/13/24 1 Day Ago History extended release (Wellbutrin XL) ~07/23/24 ergocalciferol (vitamin D2) 1,250 1,250 mcg PO WEEKLY 07/24/24 08/13/24 1 Day Ago History mcg (50,000 unit) capsule (Vitamin ~07/23/24 D2) vits no.126-ferrous fum 1 tablet PO DAILY 07/24/24 08/13/24 1 Day Ago History 28 mg iron-folic acid 800 mcg ~07/23/24 tablet (Classic ) Allergies Allergy/AdvReac Type Severity Reaction Status Date / Time No Known Allergies Allergy Verified 07/24/24 13:22 Review of Systems 2 Review of Systems: All systems reviewed & are unremarkable except as noted in HPI. All systems reviewed & are unremarkable except as noted in HPI and below PMFSH Family History Family History Father Oral cancer Grandparent Diabetes mellitus Congestive heart failure Sibling Fatty liver Other Dementia Depression Hypertension Social History Social History Smoking status: Never smoker Substance use: former Do You Feel Safe in your Home?: Yes Lack of Transportation: No Lack of Food: Never True Current Housing: I Have Housing Concerned About Future Housing: No Difficulty Paying Gas/Electric Bills: No Difficulty Paying for Meds: No Currently Unemployed: No Education: High School Diploma/GED Difficulty w/ Childcare or Family Care: No Spiritual care concerns: No Exam 2 Narrative: GENERAL: Mildly ill-appearing, obese with BMI of 33.6, non-toxic, in no acute distress. HEAD: Normocephalic, atraumatic. BREAST: Breasts are mildly engorged bilaterally. Scattered areas of induration, focal tenderness, erythema, warmth throughout caleb breasts. Most notably 12 and 3 oclock positions of L breast, 9oclock position of R breast. No purulent nipple discharge. Nipples are draining milk bilaterally. No focal fluctuance. RESPIRATORY: Airway patent, respirations nonlabored. CARDIOVASCULAR: Regular rate and rhythm ABDOMINAL: Soft, no significant tenderness throughout abdomen, nondistended. Normoactive BS. MUSCULOSKELETAL: Moves all extremities. No gross deformities. SKIN: Warm, dry, mildly flushed appearing. NEURO: A&O X3. Speech clear. Cranial nerves II-XII grossly intact. No ataxic movements. PSYCHIATRIC: Appropriate mood and affect. Normal interaction. Course Vital Signs Vital signs: Vital Signs Temperature 99.9 F H 08/29/24 01:47 Pulse Rate 100 08/29/24 01:47 Respiratory Rate 16 08/29/24 01:47 Blood Pressure 133/67 08/29/24 01:47 Pulse Oximetry 100 08/29/24 01:47 Temperature 100.7 F H 08/29/24 02:28 Pulse Rate 100 08/29/24 01:47 Respiratory Rate 16 08/29/24 01:47 Blood Pressure 133/67 08/29/24 01:47 Pulse Oximetry 100 08/29/24 01:47 Medical Decision Making [facility] Narrative Medical decision making narrative: Patient presented to ED 13 days , first , with bilateral breast pain. Also reporting fevers, myalgias. Currently and pumping. Reports she is an over supplier. Patient febrile upon arrival. Heart rate borderline tachycardic. Exam consistent with bilateral mastitis, worse throughout left breast. No abscess appreciated. Laboratory studies are reassuring. Minimal leukocytosis of 10.6. Otherwise no significant abnormalities. Patient was given fluids, caldolor, Tylenol. Given breast pump from OB. Started on Keflex. Feel she is safe for discharge home on antibiotics with close outpatient follow-up. Recommended follow-up with OBGYN for further evaluation. Discussed continued management of mastoiditis at home including continuing to pump/ breast feet, warm compresses, fluids, ibuprofen/Tylenol. Given strict return precautions. She agrees with plan. Discharged in stable condition. Medical Records Medical records reviewed: Yes I reviewed the external patient's medical records. Vital Signs Vital Signs: Vital Signs Temperature 99.9 F H 08/29/24 01:47 Pulse Rate 100 08/29/24 01:47 Respiratory Rate 16 08/29/24 01:47 Blood Pressure 133/67 08/29/24 01:47 Pulse Oximetry 100 08/29/24 01:47 Temperature 100.7 F H 08/29/24 02:28 Pulse Rate 100 08/29/24 01:47 Respiratory Rate 16 08/29/24 01:47 Blood Pressure 133/67 08/29/24 01:47 Pulse Oximetry 100 08/29/24 01:47 Lab Data Lab results reviewed: Yes I reviewed the patient's lab results. 08/28/24 20:16 08/28/24 20:16 Labs: Lab Results 08/28/24 Range/Units 20:16 WBC 10.6 H (4.5-10.0) K/mm3 RBC 4.48 (4.2-5.4) M/mm3 Hgb 13.8 (12.0-15.0) g/dL Hct 40.7 (37.0-47.0) % MCV 90.8 (80-100) fl MCH 30.8 (26-34) pg MCHC 33.9 (32-36) g/dl RDW 12.6 (11.5-14.5) % Plt Count 337 D (150-375) k/mm3 MPV 8.4 (7.4-10.4) fl Immature Gran % (Auto) 0.4 (0-0.5) % Neut % (Auto) 91.0 H (45.5-73.1) % Lymph % (Auto) 3.3 L (18.3-44.2) % [place] % (Auto) 5.1 (2.6-8.5) % Eos % (Auto) 0.0 (0-4.4) % Baso % (Auto) 0.2 (0.2-1.2) % Lymph # (Auto) 0.35 L (0.9-3.2) K/mm3 [place] # (Auto) 0.5 (0.1-0.6) K/mm3 Eos # (Auto) 0.0 (0-0.3) K/mm3 Baso # (Auto) 0.0 (0.0-0.1) K/mm3 Abs Immat Gran (auto) 0.04 H (0.00-0.031) K/mm3 Absolute Neuts (auto) 9.6 H (1.3-6.7) K/mm3 Absolute Nucleated RBC 0.000 (0.0-0.012) K/mm3 Nucleated RBC % 0.0 (0.0-0.2) % Sodium 133 L (137-145) mmol/L Potassium 3.8 (3.4-5.0) mmol/L Chloride 105 (98-107) mmol/L Carbon Dioxide 20 L (22-30) mmol/L Anion Gap 8 (4-12) mmol/L BUN 14 (7-17) mg/dL Creatinine 0.80 (0.7-1.0) mg/dL Estim Creat Clear Calc 111 ml/min Estimated GFR > 60 (59 - ) Glucose 136 H (65-110) mg/dL Calcium 8.8 (8.4-10.2) mg/dL Total Bilirubin 0.4 (0.2-1.3) mg/dL AST 32 (14-36) U/L ALT 26 (6-35) U/L Alkaline Phosphatase 128 H (38-126) U/L Total Protein 7.0 (6.3-8.2) g/dL Albumin 4.2 (3.5-5.1) g/dL Discharge Plan Discharge Clinical Impression: Mastitis associated with Patient Disposition: Home, Self-Care Condition: Stable Instructions: Antibiotic Form, Mastitis (ED), and the Working Mom (ED), and Nipple Soreness (ED), and Breast Engorgement (ED), and Plugged Ducts (ED), Breast Care for the Mother (ED) Additional Instructions: Take antibiotics as prescribed. Continue Tylenol and ibuprofen as needed for pain/fevers. Stay very well hydrated. Recommend frequent warm compresses to breast. Continue to pump and breast feed frequently throughout the day to keep milk supply flowing. You may also gently massage breasts to help on block the milk ducts. Recommend plenty of rest. Follow-up with your OBGYN for further evaluation. Return to the ED if you experience worsening or severe symptoms, symptoms not improving with antibiotics, unable to keep down food or drink, milk supply decreasing, severe pain, or any other symptoms of concern. Patient Language: Ethiopian Prescriptions: New cephalexin 500 mg capsule 500 mg PO Q6H 10 Days Qty: 40 0RF No Action Classic 28 mg iron- 800 mcg Tablet 1 tablet PO DAILY ergocalciferol (vitamin D2) [Vitamin D2] 1,250 mcg (50,000 unit) Capsule 1,250 mcg PO WEEKLY bupropion HCl [Wellbutrin XL] 300 mg Tablet Extended Release 24 Hr 300 mg PO HS docusate sodium 100 mg Capsule 100 mg PO BID PRN (Reason: Constipation) Qty: 60 0RF ibuprofen 600 mg Tablet 600 mg PO Q6H PRN (Reason: Cramping) 14 Days Qty: 30 0RF Follow-up/Referrals: Yanni North MD [Physician] - (OBGYN) PHYSICIAN NOT ON STAFF,NONSTAFF [Primary Care Provider] - Time of Disposition: 02:40
[2024-08-29 02:28] VITALS: TEMP 38.2
--- NOTE | 2024-08-29 06:56 | PC.NURSE ---
Pt dc at 0400.
[2024-08-29] MEDS: IBUPROFEN IV 800 MG/200 ML 800 MG/200 ML BAG 400 MG IVPB (06:57)
[2024-08-29] MEDS: ACETAMINOPHEN 500 MG TABLET 1000 MG PO (06:57)
[2024-08-29] MEDS: SODIUM CHLORIDE 0.9% IV 1,000 ML 999 ML IV CONT (06:58)
[2024-08-29] MEDS: CEPHALEXIN 500 MG CAPSULE PO (06:58)
== END 2024-08-29 04:00 | disposition home or self-care (01) ==
PROVIDERS: Emergency Medicine; Emergency Provider Physician Assistant
DX: O91.23 Nonpurulent mastitis associated with lactation (principal)
CPT/HCPCS: 36415; 80053; 85025; 96374; 99284; A9270; J1741; J7030